=== PATIENT | female | born 1970 | race Caucasian/White ===

== ENCOUNTER 2017-09-22 18:38 | Emergency (ER) | payer OTHER ==
[2017-09-22 18:55] VITALS: BMI 39.6
--- NOTE | 2017-09-22 20:04 | DR.GENAD ---
HPI - PCP Primary Care Physician: [email or web address] - HPI Comment HPI Comment: PATIENT ALSO HAVE SMALL PUSTULE ON LT SHOULDER WITH SURROUNDING REDNESS. NO FEVER. - Complaint/Symptoms Chief Complaint Doctors Comments: LEFT SHOULDER PAIN SINCE THIS MORNING. INJURY SAME SHOULDER FEW DAYS AGO. Chief Complaint:: pt states" I woke up this morning with my lt shoulder hurting me really bad i think it may be broke" - Nurses notes reviewed Nurses Notes Review: Yes - Source History Provided: Patient - Mode of Arrival Mode of Arrival: Ambulatory - Timing Onset of Chief Complaint: 09/22/17 Came on: Suddenly - Duration Duration: Constant Duration: Days - Severity Severity: Moderate PMH - PMH Past Medical History: Yes Past Medical History: Migraines, Hypertension Past Surgical History: Yes Surgical History: Hysterectomy - Family History History of Family Medical Conditions: Yes Family Medical History: Diabetes Mellitus, Cancer, [place], Coronary Artery Disease, Hypertension - Social History Type of Tobacco Use: Cigarettes Does any household member use tobacco: No Alcohol Use: None Do you use any recreational Drugs:: No Lives With: Family Lives Where: Home - infectious screening In the last 2 months have you had wt loss of >10#?: NO Have you had fever, night sweats or hemotysis?: No Have you traveled outside the country in the last 6 months?: No Isolation: Standard ROS - Review of Systems Constitutional: No Symptoms Reported Eyes: No Symptoms Reported ENTM: No Symptoms Reported Respiratoy: No Symptoms Reported Cardiovascular: No Symptoms Reported Gastrointestinal/Abdominal: No Symptoms Reported Genitourinary: No Symptoms Reported Neurological: No Symptoms Reported Musculoskeletal: Joint Pain, Muscle Pain, Left, Shoulder Integumentary: Change in Color, Other (REDNESS RT SHOULDER WITH SMALL PUSTULE.) Hematologic/Lymphatic: No Symptoms Reported Endocrine: No Symptoms Reported All Other Systems: Reviewed and Negative PE - Vital Signs Vitals: Temperature 98.9 F Pulse Rate [Right Brachial] 86 Pulse Rate 79 Respiratory Rate 18 Blood Pressure [Right Arm] 126/72 Blood Pressure 131/62 O2 Sat by Pulse Oximetry 99 - General Limitations: No Limitations General Appearance: Alert - Head Head Exam: Normal Inspection - Eyes Eye exam: Normal Appearance - ENT ENT Exam: Normal External Ear Exam External Ear Exam: Normal External Inspection TM/Canal Exam: Bilateral Normal Nose Exam: Normal Nose Exam Mouth Exam: Normal Inspection Throat Exam: Normal Inspection - Neck Neck Exam: Trachea Midline - Chest Chest Inspection: Symmetric Chest Wall Rise - Respiratory Respiratory Exam: Normal Lung Sounds Bilat Respiratory Exam: Bilateral Clear to Auscultation - Cardiovascular Cardiovascular Exam: Regular Rate, Normal Rhythm, Normal Heart Sounds - Abdominal Exam Abdominal Exam: Normal Bowel Sounds, Soft. negative: Tenderness - Extremities Extremities Exam: Tenderness (LT SHOULDER TENDER WITH PUSTULE AND REDNESS.) - Back Back Exam: Normal Inspection - Neurologic Neurological Exam: Alert, Oriented X3 - Psychiatric Psychiatric Exam: Normal Affect, Normal Mood - Skin Skin Exam: Normal Color MDM - Additional Information Additional Information Obtained From: Family - Differential Diagnosis Differential Diagnosis: LEFT SHOULDER PAIN, CELLULITIS Course - Treatment Treatment: SEE ORDERS. - Education/Counseling Education/Counseling: Patient, Family, Education Educated On: Diagnosis, Needs for Follow Up ROR - XRAY XRAY Interpreted by: Radiologist XRAY Findings: REPORT DISCUSS WITH PATIENT. - Diagnosis Discharge Problem: Cellulitis Shoulder sprain Qualifiers: Encounter type: initial encounter Shoulder sprain type: unspecified sprain Laterality: left Qualified Code(s): S43.402A - Unspecified sprain of left shoulder joint, initial encounter - Discharge Plan Disposition: HOME, SELF-CARE Condition: Stable Prescriptions: Cyclobenzaprine HCl [FLEXERIL 10 MG *] 10 mg PO TID PRN #20 tab PRN Reason: Ibuprofen [MOTRIN TAB 800 MG *] 800 mg PO BID PRN #30 tab PRN Reason: Pain/Inflammation Sulfamethoxazole-Trimethoprim [BACTRIM DS TAB 800/160 MG *] 1 tab PO BID #20 tab - Follow ups/Referrals Follow ups/Referrals: [facility],None [Primary Care Provider] - 3 days YOANDY GRIFFITH [STAFF PHYSICIAN] - 3 days - Instructions Instructions: Cellulitis, Adult, Shoulder Sprain Additional Instructions: RETURN TO ED IF WORSE.
[2017-09-22] MEDS ORDERED: TORADOL 60 MG VIAL ONE (21:04)
[2017-09-22] MEDS ORDERED: TORADOL 60 MG VIAL IM ONE (21:05)
[2017-09-22] MEDS ORDERED: BACTRIM DS TAB PO ONE ×2 (21:05→21:15)
[2017-09-22 22:01] VITALS: BP 126/72
--- NOTE | 2017-09-22 22:19 | RAD ---
Three views of the left shoulder. Indication: Left shoulder pain. Findings: No acute fracture dislocation within the left shoulder. AC joint demonstrates mild degenera tive change. Glenohumeral joint spaces are preserved. No localizing soft tissue swelling within the l eft shoulder. No displaced left-sided rib fracture. Impression: 1.No acute radiographic abnormality within the left shoulder. 2. Mild left AC joint osteoarthrosis. Reported By:
== END 2017-09-22 22:02 | disposition home or self-care (01) ==
LOC: ER 19:08
DX: L03.90 Cellulitis, unspecified (principal); S43.402A Unspecified sprain of left shoulder joint, initial encounter; Y33.XXXA Other specified events, undetermined intent, initial encounter; Y92.9 Unspecified place or not applicable
CPT/HCPCS: 73030; 96372; 99282; 99283; J1885

== ENCOUNTER 2019-04-06 21:57 | Inpatient (IN) ==
[2019-04-06 22:11] VITALS: BMI 37.7
--- NOTE | 2019-04-06 22:14 | RAD ---
Chest AP portable Indication: Chest pain. Dyspnea. Comparison: 01/05/2015 chest radiograph Findings: Monitoring leads obscure minimal detail. There is no pneumothorax or effusion. Heart size is normal. No overt edema or consolidation seen. Impression: No acute chest process or change from the prior. Reported By:
[2019-04-06] MEDS ORDERED: CARDIZEM INJ 50 MG VIAL ONE (22:15)
[2019-04-06] MEDS ORDERED: CARDIZEM INJ 50 MG VIAL IVP ONE (22:16)
[2019-04-06 22:23] LABS: BASOPHILS # (AUTO) 0.3 X10^3/uL (0.0-0.1); BASOPHILS % (AUTO) 1.4 % (0.2-1.0); EOSINOPHILS # (AUTO) 0.2 x10^3/uL (0.0-0.2); EOSINOPHILS % (AUTO) 1.2 % (0.9-2.9); HEMOGLOBIN 15.9 g/dL (12.0-16.0); LYMPHOCYTES # (AUTO) 6.1 X10^3/uL (1.3-2.9); LYMPHOCYTES % (AUTO) 31.4 % (21.0-51.0); MEAN CORPUSCULAR HEMOGLOBIN 28.9 pg (27.0-34.0); MEAN CORPUSCULAR HGB CONC 34.5 g/dL (33.0-35.0); MEAN CORPUSCULAR VOLUME 83.7 fL (80.0-100.0); MEAN PLATELET VOLUME 9.4 fL (7.4-11.0); MONOCYTES # (AUTO) 1.1 x10^3/uL (0.3-0.8); MONOCYTES % (AUTO) 5.4 % (0.0-13.0); NEUTROPHILS # (AUTO) 11.8 x10^3/uL (2.2-4.8); NEUTROPHILS % (AUTO) 60.6 % (42.0-75.0); PLATELET COUNT 323 X10^3/uL (150.0-450.0); RED BLOOD COUNT 5.49 X10^6/uL (3.5-5.4); RED CELL DISTRIBUTION WIDTH 13.4 % (11.6-16.5); WHITE BLOOD COUNT 19.4 X10^3/uL (3.6-10.0)
[2019-04-06 22:34] LABS: ALANINE AMINOTRANSFERASE 39 Units/L (12-78); ALBUMIN 3.6 g/dL (3.4-5.0); ALKALINE PHOSPHATASE 137 Units/L (46-116); ASPARTATE AMINO TRANSFERASE 32 Units/L (15-37); BLOOD UREA NITROGEN 8 mg/dL (7-18); CALCIUM 9.4 mg/dL (8.5-10.1); CARBON DIOXIDE 23.3 mmol/L (21-32); CHLORIDE 104 mmol/L (98-107); COR NA(FOR HYPERGLY) 141 mmol/L (136-145); CREATININE 1.13 mg/dL (0.55-1.02); SODIUM 140 mmol/L (136-145); TOTAL PROTEIN 8.2 g/dL (6.4-8.2); TROPONIN I < 0.02 ng/mL (0-1.5); eGFR NON BLACK RACES 55 (>60)
--- NOTE | 2019-04-06 23:29 | DR.CP ---
HPI Time Seen Time Seen by Provider: 04/06/19 22:10 Complaint Chief Complaint Doctor Comments: A 48 y/o female presenting with c/o SOB, chest pain and palpitations. These started this evening and is not related to activity. She has had a similar event a few years back that was treated with Adenosine (guessed by description of side effects). Reviewed Nurses Notes Review: Yes Source History Provided: Patient Timing Came on: Gradually Pain: Present Now Duration Duration: Constant Duration: Hours Quality Quality: Sharp Severity Severity: Moderate Modifying Factors Worsens: Nothing Associated Signs and Symptoms Associated Signs and Symptoms: Shortness of Breath and Palpitations PMH PMH Past Medical History: Migraines and Hypertension Past Surgical History: Yes Surgical History: Hysterectomy Family History Family Medical History: Diabetes Mellitus, Cancer, [place], Coronary Artery Disease and Hypertension Social History Do you use any recreational Drugs:: No infectious screening Isolation: Standard ROS Review of Systems Constitutional: No Symptoms Reported Eyes: No Symptoms Reported ENTM: No Symptoms Reported Respiratoy: Short of Breath Cardiovascular: Chest Pain and Palpitations; negative No Symptoms Reported, See HPI, Edema, Syncope, Cyanosis and Skin Mottling Gastrointestinal/Abdominal: No Symptoms Reported Genitourinary: No Symptoms Reported Neurological: No Symptoms Reported Musculoskeletal: No Symptoms Reported Integumentary: No Symptoms Reported PE Vitals Vitals: Pulse Rate 173 Respiratory Rate 18 Blood Pressure [Right Arm] 165/90 Blood Pressure 135/102 O2 Sat by Pulse Oximetry 100 General Limitations: No Limitations General Appearance: Alert and In No Apparent Distress Head Head Exam: Normal Inspection, Atraumatic and Normocephalic Eyes Eye exam: Normal Appearance and EOMI ENT ENT Exam: Normal Exam, Normal Oropharynx and Mucous Membranes Moist Chest Chest Inspection: Normal Inspection and Symmetric Chest Wall Rise Respiratory Respiratory Exam: Normal Lung Sounds Bilat, Accessory Muscle Use and Chest Wall Tenderness Cardiovascular Cardiovascular Exam: Tachycardia and +S2; negative +S1 Pulse: Normal Edema: Normal Abdominal Exam Abdominal Exam: Normal Inspection, Normal Bowel Sounds and Soft Extremities Extremities Exam: Normal Inspection and Full ROM; negative Tenderness, Normal Capillary Refill, Edema, Joint Swelling and Calf Tenderness Back Back Exam: Normal Inspection and Full ROM Neurologic Neurological Exam: Alert and Oriented X3 Psychiatric Psychiatric Exam: Normal Affect and Normal Mood Skin Skin Exam: Dry and Normal Color COURSE Reevaluation 1st: Improved (she feels better post rate control with IV Cardizem.) 2nd: Resolved Education/Counseling Education/Counseling: Patient, Family, Education and Counseling Educated On: Treatment, Diagnosis, Prognosis and Needs for Follow Up ROR Labs Reviewed Laboratory Results Reviewed?: Yes Result Diagrams: 04/06/19 22:09 04/06/19 22:09 Laboratory: WBC 19.4 X10^3/uL (3.6-10.0) H 04/06/19 22:09 RBC 5.49 X10^6/uL (3.5-5.4) H 04/06/19 22:09 Hgb 15.9 g/dL (12.0-16.0) 04/06/19 22:09 Hct 46.0 % (36.0-47.0) 04/06/19 22:09 MCV 83.7 fL (80.0-100.0) 04/06/19 22:09 MCH 28.9 pg (27.0-34.0) 04/06/19 22:09 MCHC 34.5 g/dL (33.0-35.0) 04/06/19 22:09 RDW 13.4 % (11.6-16.5) 04/06/19 22:09 Plt Count 323 X10^3/uL (150.0-450.0) 04/06/19 22:09 MPV 9.4 fL (7.4-11.0) 04/06/19 22:09 Neut % (Auto) 60.6 % (42.0-75.0) 04/06/19 22:09 Lymph % (Auto) 31.4 % (21.0-51.0) 04/06/19 22:09 [place] % (Auto) 5.4 % (0.0-13.0) 04/06/19 22:09 Eos % (Auto) 1.2 % (0.9-2.9) 04/06/19 22:09 Baso % (Auto) 1.4 % (0.2-1.0) H 04/06/19 22:09 Neut # (Auto) 11.8 x10^3/uL (2.2-4.8) H 04/06/19 22:09 Lymph # (Auto) 6.1 X10^3/uL (1.3-2.9) H 04/06/19 22:09 [place] # (Auto) 1.1 x10^3/uL (0.3-0.8) H 04/06/19 22:09 Eos # (Auto) 0.2 x10^3/uL (0.0-0.2) 04/06/19 22:09 Baso # (Auto) 0.3 X10^3/uL (0.0-0.1) H 04/06/19 22:09 Absolute Nucleated RBC 0.0 /100WBC 04/06/19 22:09 PT 13.5 SECONDS (11.8-14.3) 04/06/19 22:09 INR Target Range - 04/06/19 22:09 INR 1.07 (0.8-1.3) 04/06/19 22:09 APTT 32.0 SECONDS (22.9-36.5) 04/06/19 22:09 PTT Comment - 04/06/19 22:09 Sodium 140 mmol/L (136-145) 04/06/19 22:09 Corrected Sodium 141 mmol/L (136-145) 04/06/19 22:09 Potassium 4.0 mmol/L (3.5-5.1) 04/06/19 22:09 Chloride 104 mmol/L (98-107) 04/06/19 22:09 Carbon Dioxide 23.3 mmol/L (21-32) 04/06/19 22:09 BUN 8 mg/dL (7-18) 04/06/19 22:09 Creatinine 1.13 mg/dL (0.55-1.02) H 04/06/19 22:09 Est GFR (MDRD) Af Amer > 60 (>60) 04/06/19 22:09 Est GFR (MDRD) Non-Af 55 (>60) L 04/06/19 22:09 Glucose 160 mg/dL (65-99) H 04/06/19 22:09 Calcium 9.4 mg/dL (8.5-10.1) 04/06/19 22:09 Corrected Calcium TNP 04/06/19 22:09 Total Bilirubin 0.50 mg/dL (0.2-1.0) 04/06/19 22:09 AST 32 Units/L (15-37) 04/06/19 22:09 ALT 39 Units/L (12-78) 04/06/19 22:09 Alkaline Phosphatase 137 Units/L (46-116) H 04/06/19 22:09 Troponin I < 0.02 ng/mL (0-1.5) 04/06/19 22:09 Total Protein 8.2 g/dL (6.4-8.2) 04/06/19 22:09 Albumin 3.6 g/dL (3.4-5.0) 04/06/19 22:09 Globulin 4.6 g/dL (2.5-4.5) H 04/06/19 22:09 Albumin/Globulin Ratio 0.8 Ratio (1.1-2.1) L 04/06/19 22:09 TSH 3rd Generation 3.479 uIU/mL (0.358-3.74) 04/06/19 22:09 Specimen Type Clean catch urine 04/06/19 23:25 Urine Color [place] (YELLOW) 04/06/19 23:25 Urine Appearance Slightly hazy (CLEAR) 04/06/19 23:25 Urine pH 6.0 (5.0 - 8.0) 04/06/19 23:25 Ur Specific [place] 1.025 (1.000-1.030) 04/06/19 23:25 Urine Protein 2+ (NEGATIVE) 04/06/19 23:25 Urine Glucose (UA) Negative (NEGATIVE) 04/06/19 23:25 Urine Ketones 1+ (NEGATIVE) 04/06/19 23:25 Urine Occult Blood 2+ (NEGATIVE) 04/06/19 23:25 Urine Nitrite Negative (NEGATIVE) 04/06/19 23:25 Urine Bilirubin Negative (NEGATIVE) 04/06/19 23:25 Urine Urobilinogen 1+ (NORMAL) 04/06/19 23:25 Ur Leukocyte Esterase 2+ (NEGATIVE) 04/06/19 23:25 Urine RBC 5-10 /HPF (0-3) A 04/06/19 23:25 Urine WBC 3-5 /HPF (0-5) 04/06/19 23:25 Ur Squamous Epith Cells Moderate /HPF (NEGATIVE) 04/06/19 23:25 Calcium Oxalate Crystal Many /HPF (NEGATIVE) 04/06/19 23:25 Urine Bacteria Negative /HPF (NEGATIVE) 04/06/19 23:25 Hyaline Casts Moderate /LPF (NEGATIVE) 04/06/19 23:25 Ur Culture Indicated? No/not indicated 04/06/19 23:25 Urine Opiates Screen Positive (NEG=<300) A 04/06/19 23:25 Urine Methadone Screen Negative (NEG=<300) 04/06/19 23:25 Ur Barbiturates Screen Negative (NEG=<200) 04/06/19 23:25 Ur Phencyclidine Scrn Negative (NEG=<25) 04/06/19 23:25 Ur Amphetamines Screen Negative (NEG=<1000) 04/06/19 23:25 U Benzodiazepines Scrn Negative (NEG=<200) 04/06/19 23:25 Urine Cocaine Screen Negative (NEG=<300) 04/06/19 23:25 U Marijuana (THC) Screen Negative (NEG=<50) 04/06/19 23:25 Other Results Comments: EKG #2) s/p Cardizem: NSR at 91/min. No acute ST-T changes. EKG [place]: Normal Rhythm: PSVT Block: None Hypertrophy: None ST: Normal Opioid Opioid Risk Tool Age (Randall box if 16-45): No History of Preadolescent Sexual Abuse: No Total: 0 Total Score Risk Category: Low Risk Copyright: [facility] predicting aberrant behaviors Diagnosis Discharge Problem: Paroxysmal supraventricular tachycardia Leukocytosis Qualifiers: Leukocytosis type: unspecified Qualified Code(s): D72.829 - Elevated white blood cell count, unspecified HTN (hypertension) Qualifiers: Hypertension type: essential hypertension Qualified Code(s): I10 - Essential (primary) hypertension Diabetes mellitus Qualifiers: Diabetes mellitus type: type 2 Diabetes mellitus halfway insulin use: without halfway use Diabetes mellitus complication status: without complication Qualified Code(s): E11.9 - Type 2 diabetes mellitus without complications
[2019-04-06 23:37] LABS: BILIRUBIN,URINE NEGATIVE (NEGATIVE); BLOOD/HEMOGLOBIN,URINE 2+ (NEGATIVE); GLUCOSE, URINE NEGATIVE (NEGATIVE); KETONES,URINE 1+ (NEGATIVE); LEUKOCYTE ESTERASE ,URINE 2+ (NEGATIVE); NITRITES,URINE NEGATIVE (NEGATIVE); PROTEIN,URINE 2+ (NEGATIVE); UROBILINOGEN,URINE 1+ (NORMAL)
[2019-04-06 23:38] LABS: APPEARANCE,URINE SLIGHTLY HAZY (CLEAR); COLOR,URINE AMBER (YELLOW)
[2019-04-06] MEDS ORDERED: HumuLIN R SC PRN (23:54)
[2019-04-06 23:55] LABS: BACTERIA,URINE NEGATIVE /HPF (NEGATIVE); SQUAMOUS EPITHELIAL CELL,UR MODERATE /HPF (NEGATIVE)
[2019-04-06 23:56] LABS: CALCIUM OXALATE CRYSTALS,UR MANY /HPF (NEGATIVE); HYALINE CASTS, URINE MODERATE /LPF (NEGATIVE)
[2019-04-07] MEDS: NS 1000 ML 1,000 ML IV SCH ×2 (01:02→06:15)
[2019-04-07] MEDS ORDERED: NS 1000 ML 1,000 ML ONE (01:07)
[2019-04-07 06:12] LABS: BASOPHILS # (AUTO) 0.1 X10^3/uL (0.0-0.1); BASOPHILS % (AUTO) 0.8 % (0.2-1.0); EOSINOPHILS # (AUTO) 0.4 x10^3/uL (0.0-0.2); EOSINOPHILS % (AUTO) 2.6 % (0.9-2.9); HEMATOCRIT 39.5 % (36.0-47.0); HEMOGLOBIN 13.4 g/dL (12.0-16.0); LYMPHOCYTES # (AUTO) 4.3 X10^3/uL (1.3-2.9); LYMPHOCYTES % (AUTO) 30.3 % (21.0-51.0); MEAN CORPUSCULAR HEMOGLOBIN 28.8 pg (27.0-34.0); MEAN CORPUSCULAR HGB CONC 33.8 g/dL (33.0-35.0); MEAN PLATELET VOLUME 9.5 fL (7.4-11.0); MONOCYTES # (AUTO) 0.8 x10^3/uL (0.3-0.8); NEUTROPHILS # (AUTO) 8.5 x10^3/uL (2.2-4.8); NEUTROPHILS % (AUTO) 60.3 % (42.0-75.0); PLATELET COUNT 240 X10^3/uL (150.0-450.0); RED BLOOD COUNT 4.65 X10^6/uL (3.5-5.4); RED CELL DISTRIBUTION WIDTH 13.8 % (11.6-16.5); WHITE BLOOD COUNT 14.1 X10^3/uL (3.6-10.0)
[2019-04-07 06:21] LABS: ALANINE AMINOTRANSFERASE 30 Units/L (12-78); ALBUMIN 2.9 g/dL (3.4-5.0); ALKALINE PHOSPHATASE 109 Units/L (46-116); ASPARTATE AMINO TRANSFERASE 20 Units/L (15-37); BLOOD UREA NITROGEN 7 mg/dL (7-18); CALCIUM 8.4 mg/dL (8.5-10.1); CARBON DIOXIDE 25.9 mmol/L (21-32); CHLORIDE 106 mmol/L (98-107); COR CA(FOR HYPOALB) 9.3 mg/dL (8.5-10.1); COR NA(FOR HYPERGLY) 140 mmol/L (136-145); CREATININE 0.77 mg/dL (0.55-1.02); SODIUM 139 mmol/L (136-145); TOTAL PROTEIN 6.7 g/dL (6.4-8.2); eGFR NON BLACK RACES > 60 (>60)
[2019-04-07] MEDS ORDERED: GLUCOPHAGE ONE (08:16)
[2019-04-07] MEDS: PROTONIX TAB 40 MG PO SCH (09:06)
[2019-04-07] MEDS: TOPROL XL PO SCH ×2 (09:07→21:05)
[2019-04-07] MEDS: GLUCOPHAGE PO SCH (09:08)
[2019-04-07] MEDS: ROCEPHIN VIAL 1 GRAM 1 G in NS 100 ML IV + SPIKE MINIBAG* 100 ML IV SCH (11:35)
[2019-04-07] MEDS: CARDIZEM CD 120 MG PO SCH (11:35)
[2019-04-07] MEDS: NORCO 10/325 TAB PO PRN ×2 (13:05→21:02)
[2019-04-07] MEDS ORDERED: COLACE CAP 100 MG PO SCH (21:00)
[2019-04-07] MEDS: MILK OF MAGNESIA PO SCH ×2 (21:02→21:09)
--- NOTE | 2019-04-07 21:26 | DR.H&P ---
H&P - History & Physical for Day of: H&P Date: 04/07/19 - Chief Complaint Chief Complaint: CHEST PAIN, PALPITATIONS, SOB - History of Present Illness History of Present Illness: IS A 48 YEAR OLD PATIENT OF OURS WHO PRESENTED TO THE ER WITH COMPLAINTS OF SHORTNESS OF BREATH, CHEST PAIN, AND PALPITATIONS. SYMPTOMS STARTED SEVERAL HOURS PRIOR TO ARRIVAL. SHE REPORTS A SIMILAR EVENT A FEW YEARS BACK AND WAS TREATED WITH ADENOSINE. ON ARRIVAL, VITALS WERE 98.4-999-69-100%-135/102. LABS WERE OBTAINED. ABNORMAL LAB VALUES INCLUDE THE FOLLOWING: WBC 19.4, RBC 5.49, CREATININE 1.13, GLUCOSE 160, ALK PHOS 137, GLOBULIN 4.6. URINALYSIS REVEALED: WBC 3-5, RBC 5-10, LEUKOCYTES 2+, BACTERIA NEGATIVE, OCCULT BLOOD 2+. SHE IS POSITIV FOR OPIATES. BLOOD CULTURES ARE PENDING. A CHEST XRAY WAS OBTAINED AND REVEALED: NO ACUTE CHEST PROCESS OR CHANGE FROM THE PRIOR. EKG REVEALED: SINUS TACHYCARDIA WITH HR 172. SHE WAS GIVEN CARDIZEM 35MG IV X 1 DOSE. HR DECREASED TO 91. SHE WAS ADMITTED FOR FURTHER EVALUATION AND TREATMENT OF PAROXYSMAL SVT, LEUKOCYTOSIS, UTI, HTN, AND TYPE 2 DIABETES. SHE WAS STARTED ON METOPROLOL 50MG PO BID, CARDIZEM CC 120MG PO DAILY, ROCEPHIN 1G IV DAILY, HUMULIN R SLIDING SCALE, AND HOME MEDICATIONS WERE RESUMED. WE PLAN TO FOLLOW UP WITH AM LABS AND CONTINUE TO MONITOR. - Past Medical History Past Medical History: Hypertension, Migraines - Past Surgical History Surgical History: Hysterectomy - Family History Family Medical History: Diabetes Mellitus, Cancer, [place], Coronary Artery Disease, Hypertension - Social History Does patient currently use any type of tobacco product: Yes Have you used tobacco products in the last 12 months: Yes Type of Tobacco Use: Cigarettes How many years tobacco product used: 33 Does any household member use tobacco: Yes Alcohol Use: Occasionally Drug Use: None - Medications Home Medications: tramadol Allergy (Verified 03/21/18 17:23) CONTINUE taking the following medications diazepam 5 mg PO BID 04/07/19 [History] diclofenac sodium 50 mg PO BID 04/07/19 [History] gabapentin [Neurontin] 100 mg PO TID 04/07/19 [History] glyburide 5 mg PO DAILY 04/07/19 [History] hydrocodone-acetaminophen 1 tab PO Q6H PRN 04/07/19 [History] metoprolol tartrate 50 mg PO BID 04/07/19 [History] omeprazole 40 mg PO DAILY 04/07/19 [History] - Review of Systems Constitutional: Weakness Eyes: No Symptoms Reported ENT: No Symptoms Reported Respiratory: See HPI, Shortness of Breath Cardiovascular: Chest Pain, Palpitations, Light Headedness Gastrointestinal: No Symptoms Reported Genitourinary: No Symptoms Reported Musculoskeletal: No Symptoms Reported Skin: No Symptoms Reported Neurological: Weakness - Physical Exam Vital Signs: Temperature 97.9 F Pulse Rate [Left Brachial] 73 Pulse Rate 173 Respiratory Rate 20 Blood Pressure [Left Arm] 134/61 Blood Pressure [Right Arm] 170/80 Blood Pressure 135/102 O2 Sat by Pulse Oximetry 96 Oriented: Normal Eyes: Normal Ear: Normal Nose: Normal Throat: Normal Respiratory: Diminished Throughout Cardiovascular: Tachycardia. negative: S3, S4, Murmur : Normal Auscultation: Bowel Sounds: Normal Palpation: Normal Tenderness: Normal Skin: Normal Musculoskeletal: Normal Psychiatric: Normal Mood Description: Calm Affect: Normal Speech Pattern: Clear - Allergies Allergies/Adverse Reactions: Allergies Allergy/AdvReac Type Severity Reaction Status Date / Time tramadol Allergy Verified 03/21/18 17:23
[2019-04-08] MEDS: NS 1000 ML 1,000 ML IV SCH ×3 (03:31→07:09)
[2019-04-08 06:23] LABS: BASOPHILS # (AUTO) 0.1 X10^3/uL (0.0-0.1); EOSINOPHILS # (AUTO) 0.2 x10^3/uL (0.0-0.2); EOSINOPHILS % (AUTO) 1.9 % (0.9-2.9); HEMATOCRIT 36.8 % (36.0-47.0); HEMOGLOBIN 12.4 g/dL (12.0-16.0); LYMPHOCYTES % (AUTO) 28.1 % (21.0-51.0); MEAN CORPUSCULAR HEMOGLOBIN 28.8 pg (27.0-34.0); MEAN CORPUSCULAR HGB CONC 33.7 g/dL (33.0-35.0); MEAN CORPUSCULAR VOLUME 85.5 fL (80.0-100.0); MEAN PLATELET VOLUME 9.9 fL (7.4-11.0); MONOCYTES # (AUTO) 0.7 x10^3/uL (0.3-0.8); MONOCYTES % (AUTO) 6.7 % (0.0-13.0); NEUTROPHILS # (AUTO) 6.7 x10^3/uL (2.2-4.8); NEUTROPHILS % (AUTO) 62.3 % (42.0-75.0); PLATELET COUNT 191 X10^3/uL (150.0-450.0); RED BLOOD COUNT 4.31 X10^6/uL (3.5-5.4); RED CELL DISTRIBUTION WIDTH 13.8 % (11.6-16.5); WHITE BLOOD COUNT 10.7 X10^3/uL (3.6-10.0)
[2019-04-08 06:41] LABS: ALANINE AMINOTRANSFERASE 29 Units/L (12-78); ALBUMIN 2.8 g/dL (3.4-5.0); ALKALINE PHOSPHATASE 126 Units/L (46-116); ASPARTATE AMINO TRANSFERASE 22 Units/L (15-37); BLOOD UREA NITROGEN 7 mg/dL (7-18); CALCIUM 8.1 mg/dL (8.5-10.1); CARBON DIOXIDE 24.3 mmol/L (21-32); CHLORIDE 108 mmol/L (98-107); COR CA(FOR HYPOALB) 9.1 mg/dL (8.5-10.1); COR NA(FOR HYPERGLY) 142 mmol/L (136-145); CREATININE 0.68 mg/dL (0.55-1.02); SODIUM 141 mmol/L (136-145); TOTAL PROTEIN 6.4 g/dL (6.4-8.2); eGFR NON BLACK RACES > 60 (>60)
[2019-04-08] MEDS: MILK OF MAGNESIA PO SCH (08:54)
[2019-04-08] MEDS: PROTONIX TAB 40 MG PO SCH (08:57)
[2019-04-08] MEDS: TOPROL XL PO SCH (08:57)
[2019-04-08] MEDS: ROCEPHIN VIAL 1 GRAM 1 G in NS 100 ML IV + SPIKE MINIBAG* 100 ML IV SCH (08:57)
[2019-04-08] MEDS: CARDIZEM CD 120 MG PO SCH (08:57)
[2019-04-08] MEDS: GLUCOPHAGE PO SCH (08:58)
[2019-04-08] MEDS: NORCO 10/325 TAB PO PRN (09:02)
[2019-04-08 11:35] VITALS: BP 141/80
== END 2019-04-08 12:15 | disposition home or self-care (01) | DRG 309 ==
LOC: ER 21:58 → MED/SURG 23:54
PROVIDERS: ADMIT Internal Medicine; ATTEND Internal Medicine
DX: I47.1 Supraventricular tachycardia; R94.31 Abnormal electrocardiogram [ECG] [EKG]; R06.02 Shortness of breath; D72.828 Other elevated white blood cell count; R07.89 Other chest pain; I10 Essential (primary) hypertension; N39.0 Urinary tract infection, site not specified; E11.65 Type 2 diabetes mellitus with hyperglycemia
CPT/HCPCS: 36415; 71010; 71045; 80053; 80307; 81001; 84443; 84484; 85025; 85610; 85730; 87040; 93005; 93306; 96365; 96374; 99284; A4222; G0434; J0696; J3490; J7030; J7050